=== PATIENT | male | born 1990 | race Hispanic/Latino ===

== ENCOUNTER 2017-09-03 05:52 | Emergency (ER) | payer SELFPAY ==
[2017-09-03 06:06] VITALS: O2SAT 100
--- NOTE | 2017-09-03 07:04 | ED PDOC ---
HPI: Psych/Substance Abuse Time Seen by Provider: 09/03/17 06:21 Chief Complaint (Nursing): Alcohol Ingestion ED Caveat: Acuity of Condition History Per: Patient History/Exam Limitations: no limitations Onset/Duration Of Symptoms: Hrs Current Symptoms Are (Timing): Still Present Additional Complaint(s): Pt. BIBEMS for alcohol intoxication, staets he doesn't know how much he drank or where he was. Past Medical History Reviewed: Historical Data, Nursing Documentation, Vital Signs Vital Signs: Last Vital Signs Temp 98.0 F 09/03/17 06:04 Pulse 100 H 09/03/17 06:04 Resp 16 09/03/17 06:04 BP 115/69 09/03/17 06:04 Pulse Ox 100 09/03/17 06:04 - Family History Family History: States: Unknown Family Hx - Home Medications Home Medications: Ambulatory Orders Medication Instructions Recorded No Known Home Med 09/03/17 - Allergies Allergies/Adverse Reactions: Allergies Allergy/AdvReac Type Severity Reaction Status Date / Time No Known Allergies Allergy Verified 09/03/17 06:06 Review of Systems Review Of Systems: ROS cannot be obtained secondary to pt's inabilty to answer questions. Physical Exam - Reviewed Nursing Documentation Reviewed: Yes Vital Signs Reviewed: Yes - Physical Exam Appears: Positive for: Well, Non-toxic, No Acute Distress (intoxicated appearing ) Head Exam: Positive for: ATRAUMATIC, NORMAL INSPECTION, NORMOCEPHALIC Skin: Positive for: Normal Color, Warm, DRY Eye Exam: Positive for: EOMI, Normal appearance, PERRL ENT: Positive for: Normal ENT Inspection Neck: Positive for: Normal, Painless ROM Cardiovascular/Chest: Positive for: Regular Rate, Rhythm Respiratory: Positive for: CNT, Normal Breath Sounds Gastrointestinal/Abdominal: Positive for: Normal Exam, Bowel Sounds, Soft Back: Positive for: Normal Inspection Extremity: Positive for: Normal ROM Neurologic/Psych: Positive for: Alert, Oriented - ECG O2 Sat by Pulse Oximetry: 100 Pulse Ox Interpretation: Normal Medical Decision Making Medical Decision Making: Intox, will sign out to day team pending sobriety. Disposition - Clinical Impression Clinical Impression: Alcohol abuse - Patient ED Disposition Is Patient to be Admitted: Transfer of Care - Disposition Disposition: Transfer of Care Disposition Time: 07:00 Condition: STABLE Patient Signed Over To: Oj Gutierrez Handoff Comments: pending sobriety
--- NOTE | 2017-09-03 07:37 | ED PDOC ---
- ECG O2 Sat by Pulse Oximetry: 100 Pulse Ox Interpretation: Normal - Progress ED Course And Treament: 737: Took over care from Dr. Altman. Pending sobriety. 1006: Stable. AAOx3. Pain free. Tolerated PO. Friend present and will take responsibility for him. Pt. walking with no issues. Disposition - Clinical Impression Clinical Impression: Alcohol abuse - POA Present On Arrival: None - Disposition Referrals: [facility] [Outside] - 09/05/17 Disposition: Routine/Home Disposition Time: 10:07 Condition: STABLE Additional Instructions: Return if not better in 3 days. Instructions: Abuse of Alcohol (ED)
[2017-09-03 10:18] VITALS: BP 100/51; PULSE 96; RESP 18; TEMP 98.7
== END 2017-09-03 10:16 | disposition home or self-care (01) ==
LOC: H.ER 05:52 → EDBD 05:52 → H.ER 10:16
DX: F10.129 Alcohol abuse with intoxication, unspecified (principal); Y90.8 Blood alcohol level of 240 mg/100 ml or more
CPT/HCPCS: 99284; G0480